=== PATIENT | male | born 1990 | race Caucasian/White ===

== ENCOUNTER 2019-07-06 02:21 | Emergency (ER) | payer MEDICAID ==
[~2019-07-06] VITALS: Ht 182.9 cm; Wt 95.0 kg
[2019-07-06 02:27] VITALS: BP 177/95
[2019-07-06] MEDS ORDERED: THIAMINE 100MG TABLET PO ONE (02:30)
[2019-07-06] MEDS ORDERED: LORazepam 1MG TABLET PO ONE (02:30)
[2019-07-06] MEDS ORDERED: ONDANSETRON ODT 4 MG PO ONE (02:30)
[2019-07-06] MEDS ORDERED: ONDANSETRON ODT 4 MG ONE (02:34)
[2019-07-06] MEDS ORDERED: THIAMINE 100MG TABLET ONE (02:34)
[2019-07-06] MEDS ORDERED: LORazepam 1MG TABLET ONE (02:35)
[2019-07-06] MEDS ORDERED: PLEASE ENTER ALLERGIES MC SCH (03:00)
[2019-07-06] MEDS ORDERED: PLEASE ENTER HEIGHT AND WEIGHT MC SCH (03:00)
== END 2019-07-06 03:41 | disposition home or self-care (01) ==
LOC: ED 02:52
DX: F41.1 Generalized anxiety disorder (principal); R44.0 Auditory hallucinations; F15.10 Other stimulant abuse, uncomplicated; Z72.9 Problem related to lifestyle, unspecified
CPT/HCPCS: 99284; Q0162; Q0177